=== PATIENT | male | born 1975 | race Caucasian/White ===

== ENCOUNTER 2016-10-25 16:00 | Emergency (ER) | payer SELFPAY ==
[~2016-10-25] VITALS: Ht 180.3 cm; Wt 92.5 kg
[2016-10-25 16:00] VITALS: BP 149/97
== END 2016-10-25 17:42 | disposition home or self-care (01) ==
LOC: ER 16:07
DX: S62.367A Nondisplaced fracture of neck of fifth metacarpal bone, left hand, initial encounter for closed fracture (principal); F32.9 Major depressive disorder, single episode, unspecified; K21.9 Gastro-esophageal reflux disease without esophagitis; Z88.6 Allergy status to analgesic agent; W22.8XXA Striking against or struck by other objects, initial encounter; Y93.89 Activity, other specified; Y92.89 Other specified places as the place of occurrence of the external cause; Y99.8 Other external cause status
CPT/HCPCS: 29125; 73130; 99284; A4606; Z7610

== ENCOUNTER 2021-08-21 20:31 | Emergency (ER) | payer BC ==
[~2021-08-21] VITALS: Ht 180.3 cm; Wt 95.3 kg
--- NOTE | 2021-08-21 21:19 | NUR ---
BIBS C/O LEFT INDEX FINGER INFECTION. PATIENT ALERT AND ORIENTED X3. AMBULATORY WITH NON LABORED BREATHING. PLACED IN BED 03 AWAITING MD CARUSO.
[2021-08-21] MEDS ORDERED: CEPH500C2 PO (21:48)
--- NOTE | 2021-08-21 22:39 | NUR ---
Patient discharged to home in stable condition. Written and verbal after care instructions given. Patient verbalizes understanding of instruction.
[2021-08-21 22:41] VITALS: BP 119/68
== END 2021-08-21 22:42 | disposition home or self-care (01) ==
LOC: ER 20:33
DX: L03.012 Cellulitis of left finger (principal); F32.A Depression, unspecified; K21.9 Gastro-esophageal reflux disease without esophagitis; Z87.39 Personal history of other diseases of the musculoskeletal system and connective tissue; Z79.899 Other long term (current) drug therapy
CPT/HCPCS: 10060; 99283; A6407

== ENCOUNTER 2025-01-21 00:37 | Emergency (ER) | payer SELFPAY ==
[~2025-01-21] VITALS: Ht 177.8 cm; Wt 95.3 kg
[~2025-01-21 00:37] MED LIST: CEPH500C2 PO
[2025-01-21 01:55] VITALS: BP 133/74; TEMP 98; O2SAT 98
== END 2025-01-21 01:56 | disposition home or self-care (01) ==
LOC: ER 00:42
DX: S83.8X2A Sprain of other specified parts of left knee, initial encounter (principal); K21.9 Gastro-esophageal reflux disease without esophagitis; F32.A Depression, unspecified; Z88.8 Allergy status to other drugs, medicaments and biological substances; W18.39XA Other fall on same level, initial encounter; Y93.02 Activity, running; Y92.89 Other specified places as the place of occurrence of the external cause; Y99.8 Other external cause status
CPT/HCPCS: 73700-TC